=== PATIENT | female | born 1955 | race Hispanic/Latino ===

== ENCOUNTER 2016-11-02 08:00 | Day surgery (SDC) | payer OTHER ==
[2016-10-27 09:52] LABS: Basophils % (Auto) 0.7 % (0.0-1.8); Eosinophils % (Auto) 1.7 % (0.0-4.3); Hematocrit 40.9 % (30.3-42.9); Hemoglobin 13.9 gm/dl (10.1-14.3); Mean Corpuscular HGB Conc 34 % (30-34); Mean Corpuscular Hemoglobin 31 pg (28-32); Mean Corpuscular Volume 92 fl (79-97); Platelet Count 311 K/mm3 (140-440); Red Blood Count 4.47 M/mm3 (3.65-5.03); Red Cell Distribution Width 13.8 % (13.2-15.2); White Blood Count 5.2 K/mm3 (4.5-11.0)
--- NOTE | 2016-10-27 09:58 | XRay Report ---
ROUTINE CHEST, TWO VIEWS: HISTORY: Right breast cancer. The trachea, heart, mediastinal contour, lung vaughan and bony thorax are unremarkable. IMPRESSION: Unremarkable chest x-ray.
[2016-10-27 10:00] LABS: Alanine Aminotransferase 23 units/L (7-56); Albumin 4.1 g/dL (3.9-5); Albumin/Globulin Ratio 1.3 %; Alkaline Phosphatase 62 units/L (35-129); Anion Gap 16 mmol/L; BUN/Creatinine Ratio 23.33; Bilirubin,Total 0.3 mg/dL (0.1-1.2); Blood Urea Nitrogen 14 mg/dL (7-17); Carbon Dioxide 27 mmol/L (22-30); Chloride 101.4 mmol/L (98-107); Glucose 104 mg/dL (65-100); Potassium 4.4 mmol/L (3.6-5.0); Sodium 140 mmol/L (137-145); Total Protein 7.2 g/dL (6.3-8.2)
[~2016-11-02 08:00] MED LIST: ANCEF/STERILE WATER 2 GM/20 ML IV ONE
[2016-11-02] MEDS ORDERED: XYLOCAINE 2% INFILTRATI ONE (09:16)
[2016-11-02] MEDS ORDERED: DIPRIVAN 10 MG/ML IV ONE (09:42)
[2016-11-02] MEDS ORDERED: DILAUDID ONE ×3 (09:43→09:45)
[2016-11-02] MEDS ORDERED: VERSED IV NR (10:00)
[2016-11-02] MEDS ORDERED: PEPCID IV NR (10:00)
[2016-11-02] MEDS ORDERED: LACTATED RINGERS 1,000 ML IV SCH (10:00)
[2016-11-02] MEDS ORDERED: VERSED ONE (10:13)
[2016-11-02] MEDS ORDERED: LACTATED RINGERS 1,000 ML ONE ×2 (10:13→12:50)
[2016-11-02] MEDS ORDERED: PEPCID IV ONE (10:14)
[2016-11-02] MEDS ORDERED: ANCEF/STERILE WATER 2 GM/20 ML IV NR (11:00)
[2016-11-02] MEDS ORDERED: XYLOCAINE MPF 2% ONE (11:05)
[2016-11-02] MEDS ORDERED: DECADRON ONE (11:05)
[2016-11-02] MEDS ORDERED: ZOFRAN ONE ×2 (11:05→14:47)
[2016-11-02] MEDS ORDERED: MARCAINE 0.25% INFILTRATI ONE (12:10)
[2016-11-02] MEDS ORDERED: XYLOCAINE 1% 20 mL INFILTRATI ONE (12:10)
[2016-11-02] MEDS ORDERED: WATER FOR IRRIG STERILE IR ONE (12:14)
--- NOTE | 2016-11-02 12:54 | Operative Report ---
Date of Surgery 11/02/16 PREOPERATIVE DIAGNOSIS: Right breast cancer of the lower outer quadrant. POSTOPERATIVE DIAGNOSIS: Right breast cancer of the lower outer quadrant. PROCEDURE: Right needle localization partial mastectomy. SURGEON: Jenifer Hawk M.D. ANESTHESIA: General. COMPLICATIONS: None. DRAINS: None. FINDINGS: Radiograph specimen with clip and wire present within area of known cancer. DISPOSITION: PACU in good condition. INDICATIONS FOR OPERATIVE PROCEDURE: This is a 61-year-old postmenopausal lady with newly diagnosed stage 0 right breast cancer of the lower outer quadrant, ductal carcinoma in situ, intermediate grade. Recommendations were to proceed with a right partial mastectomy. PROCEDURE IN DETAIL: The patient had a right needle localization performed by Radiology. The patient was then taken to the operating room, was laid supine. General anesthesia was administered. Right breast was prepped and draped in the normal sterile operative fashion. Timeout was performed. The wire was identified. A lateral skin incision was then made with a 15 blade knife with dissection taken down to the subcutaneous tissue with the aid of Bovie cautery. First began with raising of the medial flap followed by the superior flap, inferior flap, and lateral flap. The specimen was then appropriately removed with aid of Bovie cautery. The wire was not encountered. The specimen was appropriately marked. Radiograph specimen with clip and wire present. Hemostasis was noted. The breast cavity was irrigated and suctioned. The subcutaneous tissues were approximated and closed with interrupted 3-0 Vicryl and the skin closed with a running 4-0 Monocryl and Skin Affix. The patient tolerated the surgery very well. She was awakened from anesthesia without any complications, transferred to PACU in good condition. JOB# [id number] CELINA/HUY FOURNIER
--- NOTE | 2016-11-02 14:10 | Anesthesia Consultation ---
Anesthesia Consult and Med Hx Date of service: 11/02/16 - Airway Anesthetic Teeth Evaluation: Good (some implants) ROM Head & Neck: Adequate Mental/Hyoid Distance: Adequate Mallampati Class: Class III Intubation Access Assessment: Possibly Difficult - Pre-Operative Health Status ASA Pre-Surgery Classification: ASA2 Proposed Anesthetic Plan: General - Pulmonary Hx Smoking: No Hx Sleep Apnea: No - Central Nervous System Hx Psychiatric Problems: No - Gastrointestinal Hx Ulcer: No (diverticulitis) Hx Gastroesophageal Reflux Disease: Yes - Other Systems Hx Cancer: Yes (RIGHT BREAST , DX: 10/2016)
--- NOTE | 2016-11-02 14:11 | Anesthesia Day of Surgery ---
Anesthesia Day of Surgery - Day of Surgery Patient Examined: Yes Patient H&P Reviewed: Yes Patient is NPO: Yes
[2016-11-02] MEDS ORDERED: TYLENOL #3 ONE (14:47)
--- NOTE | 2016-11-02 14:58 | Post Anesthesia Evaluation ---
- Post Anesthesia Evaluation Patient Participated: Yes Airway Patent: Yes Stable Respiratory Function: Yes Nausea/Vomiting: No Temp > 96.8F: Yes Pain Manageable: Yes Adequeate Hydration: Yes Anesthesia Complications: No Block Receding Appropriately: Not Applicable Patient on Ventilator: No
--- NOTE | 2016-11-02 15:01 | Mammography Report ---
Needle localization: Mammographic grid technique utilized. The patient presents with a clip in the lateral breast. A lateral protrusion lies. The skin was cleansed and 2% lidocaine used for local anesthesia. A 7.5 cm needle was placed with mammographic confirmation of positioning. Following placement of a wire and removed the needle additional mammogram confirmation obtained. No patient complication.
--- NOTE | 2016-11-02 15:01 | Mammography Report ---
Operative specimen mammogram: A single tissue specimen is submitted it includes the targeted clip and localizing wire.
--- NOTE | 2016-11-02 15:17 | Procedure Note ---
Date of procedure: 11/02/16 Pre-op diagnosis: rt breast lesion Post-op diagnosis: same Procedure: needle loc Anesthesia: local Surgeon: JESSICA ABBOTT Estimated blood loss: none Pathology: none Condition: stable (surgery)
[2016-11-02 15:28] VITALS: BP 127/75
[2016-11-02] MEDS ORDERED: TYLENOL #3 PO ONE (16:00)
[2016-11-02] MEDS ORDERED: ZOFRAN IV ONE (16:00)
== END 2016-11-02 15:33 | disposition home or self-care (01) ==
LOC: OR 08:00
PROVIDERS: ATTEND Surgery
DX: C50.511 Malignant neoplasm of lower-outer quadrant of right female breast (principal); K21.9 Gastro-esophageal reflux disease without esophagitis
CPT/HCPCS: 19281; 19301; 36415; 71020; 76098; 80053; 85025; 88307; 93005; 93010; J0690; J1100; J1170; J2250; J2405; J2704; J7120